=== PATIENT | female | born 1945 | race Caucasian/White ===

== ENCOUNTER → 2020-06-21 | Outpatient (CLI) | payer MEDICARE, OTHER | LOC: LAB 11:45 → LAB SHORT 11:45 | DX: D48.5 Neoplasm of uncertain behavior of skin (principal) | CPT/HCPCS: 88305 ==

== ENCOUNTER → 2020-08-07 | Outpatient (CLI) | payer MEDICARE, OTHER | END | disposition home or self-care (01) | LOC: LAB 08:45 → LAB SHORT 08:45 | DX: C44.622 Squamous cell carcinoma of skin of right upper limb, including shoulder (principal); D48.5 Neoplasm of uncertain behavior of skin | CPT/HCPCS: 88305 ==

== ENCOUNTER → 2020-11-15 | Outpatient (CLI) | payer MEDICARE, OTHER | LOC: LAB 12:16 → LAB SHORT 12:16 | DX: D48.5 Neoplasm of uncertain behavior of skin (principal) | CPT/HCPCS: 88305 ==

== ENCOUNTER 2021-01-20 11:46 | Emergency (ER) | payer OTHER, MEDICARE ==
[~2021-01-20] VITALS: Ht 165.1 cm; Wt 90.7 kg
[2021-01-20] MEDS ORDERED: INCRUSE ELPT62.5MCG (11:57)
[2021-01-20] MEDS ORDERED: NEURONTIN300 MG PO (11:57)
[2021-01-20] MEDS ORDERED: ISOSORBIDE MONO30 MG (11:57)
[2021-01-20] MEDS ORDERED: SYMBICORT 16010.2 GM (11:57)
[2021-01-20] MEDS ORDERED: EUTHYROX50 MC1 (11:58)
[2021-01-20] MEDS ORDERED: ROSUVASTATIN CA20 MG (11:58)
[2021-01-20] MEDS ORDERED: SPIRONOLACTONE25 MG (11:58)
[2021-01-20] MEDS ORDERED: EFFEXOR XR37.5 MG (11:58)
[2021-01-20] MEDS ORDERED: TERA5 (11:58)
[2021-01-20] MEDS ORDERED: LOSA50 (11:58)
[2021-01-20] MEDS ORDERED: OMEPRAZOLE MAGN20 M1 (11:59)
[2021-01-20] MEDS ORDERED: ADALAT CC30 M1 (11:59)
[2021-01-20] MEDS ORDERED: CYCL10 PO (13:09)
== END 2021-01-20 13:10 | disposition home or self-care (01) ==
LOC: ER 11:46
DX: S80.811A Abrasion, right lower leg, initial encounter (principal); M25.561 Pain in right knee; M25.562 Pain in left knee; R07.9 Chest pain, unspecified; I10 Essential (primary) hypertension; V49.9XXA Car occupant (driver) (passenger) injured in unspecified traffic accident, initial encounter
CPT/HCPCS: 93005; 93010; 99284-25

== ENCOUNTER → 2021-11-19 | Outpatient (CLI) | payer MEDICARE, OTHER ==
[~2021-11-19] MED LIST: ADALAT CC30 M1; CYCL10 PO; EFFEXOR XR37.5 MG; EUTHYROX50 MC1; INCRUSE ELPT62.5MCG; ISOSORBIDE MONO30 MG; LOSA50; NEURONTIN300 MG PO; OMEPRAZOLE MAGN20 M1; ROSUVASTATIN CA20 MG; SPIRONOLACTONE25 MG; SYMBICORT 16010.2 GM; TERA5
== END ==
LOC: PLD 15:23 → LAB SHORT 15:23
DX: C44.629 Squamous cell carcinoma of skin of left upper limb, including shoulder (principal)
CPT/HCPCS: 88305

== ENCOUNTER 2022-01-17 13:32 | Emergency (ER) | payer MEDICARE, OTHER ==
[~2022-01-17] VITALS: Ht 165.1 cm; Wt 88.5 kg
[2022-01-17 14:37] LABS: BASOPHILS ABSOLUTE AUTO 0.02 K/mm3 (0.00-0.23); BASOPHILS PERCENT AUTO 1 % (0-2); EOSINOPHILS ABSOLUTE AUTO 0.03 K/mm3 (0.00-0.68); EOSINOPHILS PERCENT AUTO 1 % (0-6); Hematocrit 42.9 % (33.0-51.0); Hemoglobin 14.5 g/dL (11.5-16.0); IMMATURE GRAN ABSOLUTE AUTO 0.01 K/mm3 (0.00-0.10); IMMATURE GRAN PERCENT AUTO 0 % (0-1); LYMPHOCYTES ABSOLUTE AUTO 0.97 K/mm3 (0.84-5.20); LYMPHOCYTES PERCENT AUTO 24 % (21-46); MONOCYTES ABSOLUTE AUTO 0.39 K/mm3 (0.16-1.47); MONOCYTES PERCENT AUTO 10 % (4-13); Mean Corpuscular HGB 30.5 pg (26.0-34.0); Mean Corpuscular HGB Conc 33.8 g/dL (31.5-36.5); Mean Corpuscular Volume 90 fL (80-100); Mean Platelet Volume 12.1 fL (9.1-12.4); NEUTROPHILS PERCENT AUTO 66 % (41-73); Platelet Count 175 K/mm3 (150-400); RDW Coefficient Variation 12.6 % (11.7-14.2); RDW Standard Deviation 41.7 fL (35.1-46.3); Red Blood Cell Count 4.76 M/mm3 (3.80-5.20); White Blood Cell Count 4.12 K/mm3 (4.00-11.30)
[2022-01-17 14:57] LABS: Albumin, Blood 4.1 g/dL (3.4-5.0); Albumin/Globulin Ratio 1.2 (0.8-1.8); Bilirubin, Total 0.6 mg/dL (0.1-1.0); Bun/Creatinine Ratio 17.8 (12.0-20.0); Calcium, Blood 9.1 mg/dL (8.5-10.1); Creatinine, Blood 1.01 mg/dL (0.40-1.00); Globulin, Blood 3.5 g/dL (2.2-4.0); Potassium, Blood 4.2 mmol/L (3.5-5.5); Total Protein, Blood 7.6 g/dL (6.4-8.2)
[2022-01-17 15:47] LABS: Source, Urine Fem Cath
[2022-01-17 15:51] LABS: Appearance, Urine Clear (Clear); Bilirubin, Urine Neg (Neg); Blood, Urine 1+ (Neg); Color, Urine Yellow (P-Yellow); Glucose Qualitative, Urine Neg (Neg); Ketones, Urine 4+ (Neg); Leukocyte Esterase, Urine Neg (Neg); Nitrite, Urine Neg (Neg); Protein, Urine 1+ (Neg); Specific Gravity, Urine 1.025 (1.003-1.022); Urobilinogen, Urine 1+ (Normal)
[2022-01-17 16:01] LABS: Red Blood Cells, Urine 0-2 /hpf (0-2); Squamous Epithelial Cells Many /hpf (Few); White Blood Cells, Urine 0-2 /hpf (0-5)
[2022-01-17 16:02] LABS: Bacteria Mod /hpf; Renal Epithelial Rare /hpf (0-Rare)
== END 2022-01-17 17:38 | disposition left against medical advice (07) ==
LOC: ER 13:32
PROVIDERS: Physician Assistant
DX: U07.1 COVID-19 (principal); I10 Essential (primary) hypertension; J44.9 Chronic obstructive pulmonary disease, unspecified; Z88.5 Allergy status to narcotic agent; Z88.8 Allergy status to other drugs, medicaments and biological substances; Z79.899 Other long term (current) drug therapy
CPT/HCPCS: 36415; 80053; 81001; 83690; 83880; 84484; 85025; 87077; 87086; 87186; 93005; 93010

== ENCOUNTER → 2022-08-07 | Outpatient (CLI) | payer MEDICARE, OTHER | END | disposition home or self-care (01) | LOC: LAB 10:00 → LAB SHORT 10:00 | DX: R30.0 Dysuria (principal) | CPT/HCPCS: 87077; 87086; 87186 ==